=== PATIENT | male | born 1940 | race Caucasian/White ===

== ENCOUNTER → 2018-01-10 | Outpatient (CLI) | payer MEDICARE, OTHER ==
[~2018-01-10] MED LIST: DEXILANT; IOPAMIDOL 370 MG/ML 200 ML INFUS..BTL INJ ONE; METHYLPREDNISOLONE SOD SUCC 125 MG/2ML VIAL ONE; SODIUM CHLORIDE 0.9% 250ML 500 ML ONE; SODIUM CHLORIDE 0.9% 50ML 50 ML ONE; Z.0.TAMSULOSIN HCL0. PO
[2018-01-10 14:37] LABS: CREATININE, SERUM 1.41 mg/dL (0.72-1.25)
--- NOTE | 2018-01-10 17:49 | Diagnostic Imaging Report ---
PROCEDURE: CT ABDOMEN AND PELVIS WITH CONTRAST TECHNIQUE: The abdomen and pelvis were scanned utilizing a multidetector helical scanner from the diaphragm to the lesser trochanter after the IV administration of 70 cc of Isovue 370 and the oral administration of water. Coronal and sagittal multiplanar reformations were obtained. COMPARISON: None. INDICATIONS: LEFT ABDOMINAL MASS FINDINGS: LOWER THORAX: Atherosclerotic calcification of the coronary arteries and thoracic aorta. Mild cardiomegaly. Lung bases are grossly clear. HEPATOBILIARY: 0.8 cm fluid density simple cyst in hepatic segment II (coronal image 34) and 1.2 cm low density simple cyst in hepatic segment IVB (coronal image 33). No other focal hepatic lesions. No biliary ductal dilation. Gallbladder is unremarkable. SPLEEN: No splenomegaly. Linear capsular calcification in the lateral aspect of the spleen (series 2 image 27), with associated capsular retraction. No focal lesion. PANCREAS: No focal masses or ductal dilatation. Moderate pancreatic atrophy ADRENALS: No adrenal nodules. KIDNEYS/URETERS: Status post left nephrectomy. No enhancing soft tissue masses in the left renal fossa. Normal right renal enhancement, without hydronephrosis, stones, or focal lesions. PELVIC ORGANS/BLADDER: Bladder is unremarkable. Prostate is enlarged measuring 4.8 x 4.1 x 4.1 cm (estimated volume of 42 cc). Multiple dystrophic calcifications in the prostate. PERITONEUM / RETROPERITONEUM: Trace free fluid in the pelvic cul-de-sac (sagittal image 56). LYMPH NODES: No lymphadenopathy. 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 Moderate atherosclerotic calcification of the abdominal aorta GI TRACT: No bowel dilation. Redundant colon, particularly in the distal transverse/splenic flexure, with large amount of retained stool. Mild fecalization of the distal/terminal ileum (for example, coronal image 50). BONES AND SOFT TISSUES: Multilevel degenerative disc changes in the lumbosacral spine, worse at L5-S1.3. No aggressive lytic lesions. Tiny fat-containing umbilical hernia. IMPRESSION: 1. No left intra-abdominal mass is identified. 2. Redundant colon, particularly in the distal transverse/splenic flexure. Large amount of retained stool suggesting constipation. 3. Status post left nephrectomy. No evidence of residual or recurrent disease. No metastatic foci in the abdomen or pelvis. 4. Enlarged prostate, likely due to BPH. Chico Fuentes M.D. Dictated by: Chico Fuentes M.D. on 01/10/2018 at 17:58 Electronically approved by: Chico Fuentes M.D. on 01/10/2018 at 17:58
== END ==
LOC: CT 13:42
PROVIDERS: ATTEND Surgery
DX: D49.89 Neoplasm of unspecified behavior of other specified sites (principal)
CPT/HCPCS: 36415; 74177; 82565; 84520; J2930; J7050; Q9967

== ENCOUNTER → 2018-03-13 | Day surgery (SDC) | payer MEDICARE, OTHER ==
[2018-03-12 11:15] LABS: BASOPHILS % 0.7 % (0.0-1.0); EOSINOPHILS # (AUTO) 0.2 (0.0-0.4); EOSINOPHILS % 5.4 % (0.0-6.0); HEMOGLOBIN 12.8 g/dL (14.0-18.0); LYMPHOCYTES # (AUTO) 1.1 (1.0-3.2); LYMPHOCYTES % 27.8 % (18.0-39.1); MEAN CORPUSCULAR HEMOGLOBIN 30.8 pg (28-32); MEAN CORPUSCULAR HGB CONC 34.6 g/dL (31-35); MEAN CORPUSCULAR VOLUME 88.9 fL (81-99); MONOCYTES # (AUTO) 0.4 (0.2-0.8); MONOCYTES % 10.3 % (4.4-11.3); NEUTROPHILS # (AUTO) 2.3 (2.1-6.9); NEUTROPHILS % 55.8 % (38.7-80.0); PLATELET COUNT 238 x10e3/uL (140-360); RED BLOOD COUNT 4.16 x10e6/uL (4.3-5.7); RED CELL DISTRIBUTION WIDTH 14.3 % (11.7-14.4)
[~2018-03-13] MED LIST changes: -DEXILANT; +DEXILANT PO; +EPHEDRINE SULFATE INJ 50 MG/10 ML SYR ONE; +FENTANYL CITRATE/PF 100MCG/2 ML INJ ONE; +GLYCOPYRROLATE INJ 1MG/ 5 ML SYR ONE; +HYOSCYAMINE SULFATE 0.5 MG/ML AMP ONE; -IOPAMIDOL 370 MG/ML 200 ML INFUS..BTL INJ ONE; +LIDOCAINE HCL 2% LOCAL INJ 5 ML SDV VIAL INJ ONE; +LISINOPRIL10 MG PO; -METHYLPREDNISOLONE SOD SUCC 125 MG/2ML VIAL ONE; +MIDAZOLAM HCL 2 MG/2 ML VIAL ONE; +PROPOFOL IV EMULSION 10 MG/ML 50 ML VIAL ONE; -SODIUM CHLORIDE 0.9% 250ML 500 ML ONE; -SODIUM CHLORIDE 0.9% 50ML 50 ML ONE
--- OUTSIDE RECORDS SUMMARY | 2018-03-13 06:09 | XMS REPORT ---
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 Allergies, Adverse Reactions, Alerts This patient has no known allergies or adverse reactions. Medications This patient has no known medications. Results Test Description Test Time Test Comments Text Results Atomic Results Result Comments CT ABDOMEN/PELVIS W [place] [address] Patient Name: MARIO ARAYA MR #: [id number] : 1940 Age/Sex: 77/M Req #: [id number] Adm Physician: Ordered by: NYA PIERRE MD Report #: [id number] Location: CT Room/Bed: Procedure: [id number] CT/CT ABDOMEN/PELVIS W Exam Date: 01/10/18 Exam Time: 1620 REPORT STATUS: Signed PROCEDURE: CT ABDOMEN AND PELVIS WITH CONTRAST TECHNIQUE: The abdomen and pelvis were scanned utilizing a multidetector helical scanner from the diaphragm to the lesser trochanter after the IV administration of 70 cc of Isovue 370 and the oral administration of water. Coronal and sagittal multiplanar reformations were obtained. COMPARISON: None. INDICATIONS: LEFT ABDOMINAL MASS FINDINGS: LOWER THORAX: Atherosclerotic calcification of the coronary arteries and thoracic aorta. Mild cardiomegaly. Lung bases are grossly clear. HEPATOBILIARY: 0.8 cm fluid density simple cyst in hepatic segment II (coronal image 34) and 1.2 cm low density simple cyst in hepatic segment IVB (coronal image 33). No other focal hepatic lesions. No biliary ductal dilation. Gallbladder is unremarkable. SPLEEN: No splenomegaly. Linear capsular calcification in the lateral aspect of the spleen (series 2 image 27), with associated capsular retraction. No focal lesion. PANCREAS: No focal masses or ductal dilatation. Moderate pancreatic atrophy ADRENALS : No adrenal nodules. KIDNEYS/URETERS: Status post left nephrectomy. No enhancing soft tissue masses in the left renal fossa. Normal right renal enhancement, without hydronephrosis, stones, or focal lesions. PELVIC ORGANS/BLADDER: Bladder is unremarkable. Prostate is enlarged measuring 4.8 x 4.1 x 4.1 cm (estimated volume of 42 cc). Multiple dystrophic calcifications in the prostate. PERITONEUM / RETROPERITONEUM: Trace free fluid in the pelvic cul-de-sac (sagittal image 56). LYMPH NODES: No lymphadenopathy. 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 Moderate atherosclerotic calcification of the abdominal aorta GI TRACT: No bowel dilation. Redundant colon, particularly in the distal transverse/splenic flexure, with large amount of retained stool. Mild fecalization of the distal /terminal ileum (for example, coronal image 50). BONES AND SOFT TISSUES : Multilevel degenerative disc changes in the lumbosacral spine, worse at L5- S1.3. No aggressive lytic lesions. Tiny fat-containing umbilical hernia. IMPRESSION: 1. No left intra-abdominal mass is identified. 2. Redundant colon, particularly in the distal transverse/splenic flexure. Large amount of retained stool suggesting constipation. 3. Status post left nephrectomy. No evidence of residual or recurrent disease. No metastatic foci in the abdomen or pelvis. 4. Enlarged prostate, likely due to BPH. Hermelindo Fuentes M.D. Dictated by: Hermelindo Fuentes M.D. on 08/2018 at 17:58 Electronically approved by: Hermelindo Fuentes M.D. on 01/10/2018 at 17:58 Dictated By: HERMELINDO FUENTES MD 57 Transcribed By: ML on 01/10/181757 COPY TO: NYA PIERRE MD
--- NOTE | 2018-03-13 10:17 | Operative Report ---
DATE OF PROCEDURE: March 13, 2018 REFERRING PHYSICIAN: Dr. Halie Ott PROCEDURES PERFORMED 1. Esophagogastroduodenoscopy with biopsies. 2. Colonoscopy with polypectomy. INDICATIONS FOR EGD: History of Hsu's esophagus. INDICATIONS FOR COLONOSCOPY: Colorectal cancer screening. Personal history of colon polyps. MEDICATION: Patient was done under MAC. Please see anesthesiologist's note. PROCEDURE: With the patient in the left lateral decubitus position, the flexible fiberoptic Olympus gastroscope was introduced into the esophagus under direct visualization without any difficulty. The esophagus appeared to be within normal limits. There were some minute tongues of velvety red mucosa extending proximally from the GE junction, and biopsies were obtained. Some of the Hsu's epithelium appears to be re-epithelialized since the last EGD. The scope was then advanced with ease into the stomach, traversing a small hiatal hernia. Mucosa overlying the antrum revealed some patchy areas of erythema and low-grade edema, and biopsies were obtained and sent to stain for H. pylori. Multiple gastric polyps in the body, hyperplastic appearing, were noted and some were partially excised with cold biopsy forceps. Pylorus was of normal contour and shape. It was intubated with ease, and the scope was advanced all the way to the 2nd portion of the duodenum. The scope was then withdrawn slowly. Mucosa overlying the proximal 2nd portion and the duodenal bulb appeared to be within normal limits. The scope was then withdrawn back into the stomach and retroflexed. Mucosa overlying the fundus appeared to be within normal limits. The previously described hiatal hernia was also noted in the retroflexed position. The scope was then straightened out. The stomach was decompressed. Scope was subsequently withdrawn. Patient tolerated the procedure well. IMPRESSION 1. Hsu's esophagus, biopsies obtained. Some of Hsu's epithelium appears to have been re-epithelialized. 2. Small hiatal hernia. 3. Gastritis, biopsied. Biopsies sent to stain for H. pylori. 4. Gastric polyps, multiple, body, hyperplastic appearing, some partially excised with cold biopsy forceps. PLAN: Follow up histology. Continue Dexilant 60 mg 1 p.o. q.a.m. a.c. The patient was then turned around. After adequate lubrication of the anal canal, a flexible fiberoptic Olympus colonoscope was inserted into the rectum with ease and advanced all the way to the cecum. The scope was then withdrawn slowly. Mucosa overlying the cecum and ascending colon appeared to be within normal limits. One polyp was snared from the transverse colon. One polyp was snared from the descending colon. Diverticular disease was noted in the sigmoid colon. Approximately 5 polyps were hot biopsied from the distal sigmoid. The scope was then retroflexed into the distal rectum, and small internal hemorrhoids were noted, none of which was actively bleeding. The scope was then straightened out. The rectosigmoid area as well as the distal rectal area were decompressed. Scope was subsequently withdrawn. Patient tolerated the procedure well. IMPRESSION 1. Transverse colon polyp, snared. 2. Descending colon polyp, snared. 3. Diverticulosis. 4. Sigmoid colon polyps times 5, hot biopsied. 5. Internal hemorrhoids, none actively bleeding. PLAN: Follow up histology. Follow up stool studies. Initiate high-fiber, low-fat diet. Initiate high-fiber supplement. Patient will need a followup colonoscopy in 3 years. Job#: [id number] cc:HALIE OTT MD
== END | disposition home or self-care (01) ==
LOC: OR 06:07
PROVIDERS: ATTEND Internal Medicine Gastroenterology
DX: Z12.11 Encounter for screening for malignant neoplasm of colon (principal); K63.5 Polyp of colon; K31.7 Polyp of stomach and duodenum; K29.70 Gastritis, unspecified, without bleeding; K52.9 Noninfective gastroenteritis and colitis, unspecified; K21.0 Gastro-esophageal reflux disease with esophagitis; K22.70 Barrett's esophagus without dysplasia; K44.9 Diaphragmatic hernia without obstruction or gangrene; K57.30 Diverticulosis of large intestine without perforation or abscess without bleeding; K64.8 Other hemorrhoids; R03.0 Elevated blood-pressure reading, without diagnosis of hypertension; I71.4 Abdominal aortic aneurysm, without rupture; N40.0 Benign prostatic hyperplasia without lower urinary tract symptoms; Z01.810 Encounter for preprocedural cardiovascular examination; Z01.812 Encounter for preprocedural laboratory examination; Z90.5 Acquired absence of kidney
CPT/HCPCS: 36415; 43239; 45384; 45385; 85025; 88305; 88312; 93005; J1980; J2001; J2250